=== PATIENT | female | born 1965 | race Caucasian/White ===

== ENCOUNTER 2020-02-20 12:06 | Emergency (ER) | payer MEDICARE, MEDICAID ==
[~2020-02-20] VITALS: Ht 175.3 cm; Wt 68.2 kg
[2020-02-20] MEDS ORDERED: ondansetron/PF 4mg/2ml inj IV ONE (12:20)
[2020-02-20] MEDS ORDERED: normal saline 1000ML IV soln IVB ONE (12:20)
[2020-02-20] MEDS: morphine 4 MG/ML inj SYRINge IV PRN ×2 (13:05→16:18)
[2020-02-20 15:22] LABS: BASOPHILS # (AUTO) 0.1 X10'3 (0-0.2); BASOPHILS % (AUTO) 1.4 % (0-1); EOSINOPHILS # (AUTO) 0.3 X10'3 (0-0.9); EOSINOPHILS % (AUTO) 4.3 % (0-6); HEMATOCRIT 40.1 % (35.0-45.0); HEMOGLOBIN 13.6 g/dl (12.0-16.0); LYMPHOCYTES % (AUTO) 42.3 % (21-51); MEAN CORPUSCULAR HEMOGLOBIN 31.6 PG (27.0-31.0); MEAN CORPUSCULAR HGB CONC 33.8 g/dL (33.0-36.5); MEAN CORPUSCULAR VOLUME 93.4 FL (78-98); MEAN PLATELET VOLUME 6.8 FL (7.4-10.4); MONOCYTES # (AUTO) 0.5 X10'3 (0-0.9); MONOCYTES % (AUTO) 7.7 % (2-12); NEUTROPHILS # (AUTO) 3.2 X10'3 (1.8-7.7); NEUTROPHILS % (AUTO) 44.3 % (42-75); PLATELET COUNT 292 X10'3 (140-440); RED BLOOD COUNT 4.29 X10'6 (4.20-5.60); RED CELL DISTRIBUTION WIDTH 13.2 % (11.5-14.5); WHITE BLOOD COUNT 7.1 X10'3 (4.5-11.0)
[2020-02-20 15:36] LABS: ALANINE AMINOTRANSFERASE 22 U/L (12-78); ALBUMIN 3.6 G/DL (3.4-5.0); ALBUMIN/GLOBULIN RATIO 1.1 (1.1-1.5); ALKALINE PHOSPHATASE 77 IU/L (46-116); ANION GAP 6 (8-16); ASPARTATE AMINO TRANSFERASE 11 U/L (10-37); BILIRUBIN,TOTAL 1.1 MG/DL (0.1-1.0); BLOOD UREA NITROGEN 13 MG/DL (7-18); BUN/CREATININE RATIO 18.3 (6.6-38.0); CALCIUM 8.5 MG/DL (8.5-10.1); CHLORIDE 109 MMOL/L (99-107); CREATININE 0.71 MG/DL (0.40-0.90); GLUCOSE 84 MG/DL (70-104); POTASSIUM 3.9 MMOL/L (3.5-5.1); SODIUM 142 MMOL/L (135-145); TOTAL CARBON DIOXIDE 27.2 MMOL/L (24-32); TOTAL PROTEIN 6.8 G/DL (6.4-8.2); eGFR 85 ML/MIN
[2020-02-20 19:08] VITALS: BP 126/65
== END 2020-02-20 19:10 | disposition short-term general hospital (02) ==
LOC: ER 12:07
DX: M51.26 Other intervertebral disc displacement, lumbar region (principal); G89.29 Other chronic pain; R33.9 Retention of urine, unspecified; Z87.440 Personal history of urinary (tract) infections; Z85.9 Personal history of malignant neoplasm, unspecified; Z98.890 Other specified postprocedural states; Z88.5 Allergy status to narcotic agent; Z88.6 Allergy status to analgesic agent; Z88.8 Allergy status to other drugs, medicaments and biological substances
CPT/HCPCS: 36415; 72148; 80053; 85025; 85610; 96361; 96374; 96375; 99285; J2270; J2405; J7030; 99284

== ENCOUNTER 2020-04-09 08:44 | Day surgery (SDC) | payer MEDICARE, MEDICAID ==
[2020-04-09 10:52] VITALS: BP 133/91
--- NOTE | 2020-04-09 10:59 | NUR ---
[facility] LINE INFORMATION: REF: [id number] LOT: [id number] EXP: 03-02-2021
== END 2020-04-09 11:15 | disposition home or self-care (01) ==
LOC: SSTAY O 08:44
PROVIDERS: ATTEND Nurse Practitioner Family
DX: Z45.2 Encounter for adjustment and management of vascular access device (principal); Z88.5 Allergy status to narcotic agent; Z88.8 Allergy status to other drugs, medicaments and biological substances
CPT/HCPCS: 36573; 76937

== ENCOUNTER 2020-06-10 08:51 | Day surgery (SDC) | payer MEDICARE, MEDICAID ==
[~2020-06-10] VITALS: Ht 175.3 cm; Wt 73.5 kg
[2020-06-10] MEDS ORDERED: normal saline 1000ml 1,000 ML IV PRN (09:20)
[2020-06-10 09:22] VITALS: BP 124/88
[2020-06-10 09:58] LABS: BASOPHILS # (AUTO) 0.1 X10'3 (0-0.2); BASOPHILS % (AUTO) 0.8 % (0-1); EOSINOPHILS # (AUTO) 0.1 X10'3 (0-0.9); EOSINOPHILS % (AUTO) 1.8 % (0-6); HEMOGLOBIN 14.1 g/dl (12.0-16.0); LYMPHOCYTES # (AUTO) 2.7 X10'3 (1.1-4.8); LYMPHOCYTES % (AUTO) 40.4 % (21-51); MEAN CORPUSCULAR HEMOGLOBIN 29.3 PG (27.0-31.0); MEAN CORPUSCULAR HGB CONC 33.6 g/dL (33.0-36.5); MEAN CORPUSCULAR VOLUME 87.2 FL (78-98); MEAN PLATELET VOLUME 6.5 FL (7.4-10.4); MONOCYTES # (AUTO) 0.7 X10'3 (0-0.9); NEUTROPHILS # (AUTO) 3.2 X10'3 (1.8-7.7); PLATELET COUNT 354 X10'3 (140-440); RED BLOOD COUNT 4.82 X10'6 (4.20-5.60); WHITE BLOOD COUNT 6.7 X10'3 (4.5-11.0)
[2020-06-10] MEDS ORDERED: DOCU-22 PO (09:59)
[2020-06-10] MEDS ORDERED: APIX5TAB3 PO (09:59)
[2020-06-10] MEDS ORDERED: ALBU18HF2 (09:59)
[2020-06-10] MEDS ORDERED: PANT40TA54 PO (09:59)
[2020-06-10] MEDS ORDERED: POTA20TA19 PO (09:59)
[2020-06-10] MEDS ORDERED: ONDA4TAB12 PO (09:59)
[2020-06-10] MEDS ORDERED: LIDO20SO24 (09:59)
[2020-06-10] MEDS ORDERED: LORazepam 0.5 MG tablet PO ONE (10:00)
[2020-06-10] MEDS ORDERED: folic acid PO (10:05)
[2020-06-10] MEDS ORDERED: vitamin D3 PO (10:05)
[2020-06-10] MEDS ORDERED: LEVO175T2 PO (10:05)
[2020-06-10] MEDS ORDERED: BUDE10.22 (10:05)
[2020-06-10] MEDS ORDERED: MULT-25 PO (10:05)
[2020-06-10] MEDS ORDERED: midazolam 2 mg/2 ml injection ONE ×2 (10:37→11:08)
[2020-06-10] MEDS ORDERED: fentaNYL/PF 50MCG/1 ML 2ML syringe ONE ×2 (10:37→11:08)
[2020-06-10] MEDS ORDERED: LIDOcaine 1%/PF 5ML 10 MG/ML VIAL ONE (10:39)
[2020-06-10] MEDS ORDERED: heparin 1,000 UNITS/NS 500ml 500 ML ONE (10:40)
[2020-06-10] MEDS ORDERED: iohexol 300 MG/1 ML 50ml polymer ONE ×2 (10:40→11:17)
[2020-06-10 11:48] VITALS: BP 126/78
[2020-06-10 12:00] VITALS: BP 118/76
[2020-06-10 12:15] VITALS: BP 130/67
[2020-06-10 12:30] VITALS: BP 121/72
== END 2020-06-10 13:00 | disposition home or self-care (01) ==
LOC: SSTAY O 08:51
PROVIDERS: ATTEND Radiology Diagnostic Radiology
DX: Z45.89 Encounter for adjustment and management of other implanted devices (principal); Z79.01 Long term (current) use of anticoagulants
CPT/HCPCS: 36415; 37193; 76937; 85025; 85610; 87426; C1769; C1894; J1644; J2250; J3010; Q9967; 99152; 99153

== ENCOUNTER 2023-01-25 07:19 | Day surgery (SDC) | payer OTHER, MEDICARE ==
[~2023-01-25] VITALS: Ht 172.7 cm; Wt 76.1 kg
[2023-01-25] VITALS (13 sets, daily range): BP systolic 103–135; BP diastolic 67–91; PULSE 60–82; RESP 14–16; TEMP 97.8; O2SAT 93–98
[~2023-01-25 07:19] MED LIST: ALBU18HF2; APIX5TAB3 PO; BUDE10.22; DOCU-22 PO; LEVO175T2 PO; LIDO15SO3; MULT-25 PO; ONDA4TAB12 PO; PANT40TA54 PO; POTA-207 PO; folic acid PO; vitamin D3 PO
[2023-01-25] MEDS ORDERED: LIDOcaine 1%/PF 5ML 10 MG/ML VIAL SQ ONE (07:25)
[2023-01-25] MEDS ORDERED: normal saline 1000ml 1,000 ML IV SCH ×2 (07:50→09:50)
[2023-01-25] MEDS ORDERED: TURM500T PO (08:02)
[2023-01-25] MEDS ORDERED: CRAN125T PO (08:02)
[2023-01-25] MEDS ORDERED: [UNRECOGNIZED DRUG - CODE] PO (08:02)
[2023-01-25] MEDS ORDERED: CANNABIS TINCTURE (08:02)
[2023-01-25] MEDS ORDERED: ASPI-1264 PO (08:02)
[2023-01-25 09:18] LABS: BASOPHILS # (AUTO) 0.1 X10'3 (0-0.2); BASOPHILS % (AUTO) 0.9 % (0-1); EOSINOPHILS # (AUTO) 0.4 X10'3 (0-0.9); EOSINOPHILS % (AUTO) 4.2 % (0-6); HEMATOCRIT 41.1 % (35.0-45.0); HEMOGLOBIN 13.9 g/dl (12.0-16.0); LYMPHOCYTES # (AUTO) 3.1 X10'3 (1.1-4.8); LYMPHOCYTES % (AUTO) 36.8 % (21-51); MEAN CORPUSCULAR HEMOGLOBIN 30.4 PG (27.0-31.0); MEAN CORPUSCULAR HGB CONC 33.7 g/dL (33.0-36.5); MEAN CORPUSCULAR VOLUME 90.1 FL (78-98); MEAN PLATELET VOLUME 6.9 FL (7.4-10.4); MONOCYTES # (AUTO) 0.6 X10'3 (0-0.9); MONOCYTES % (AUTO) 7.4 % (2-12); NEUTROPHILS # (AUTO) 4.3 X10'3 (1.8-7.7); NEUTROPHILS % (AUTO) 50.7 % (42-75); PLATELET COUNT 315 X10'3 (140-440); RED BLOOD COUNT 4.56 X10'6 (4.20-5.60); RED CELL DISTRIBUTION WIDTH 12.7 % (11.5-14.5); WHITE BLOOD COUNT 8.5 X10'3 (4.5-11.0)
[2023-01-25 09:42] LABS: PROTHROMBIN TIME 9.9 SECONDS (9.0-12.0)
[2023-01-25 10:03] LABS: INR 0.9 INR
== END 2023-01-25 13:23 | disposition home or self-care (01) ==
LOC: SSTAY O 07:19
PROVIDERS: ATTEND Radiology Diagnostic Radiology
DX: R74.8 Abnormal levels of other serum enzymes (principal); E80.6 Other disorders of bilirubin metabolism; I73.00 Raynaud's syndrome without gangrene; E87.6 Hypokalemia; M32.9 Systemic lupus erythematosus, unspecified; Z85.850 Personal history of malignant neoplasm of thyroid; Z98.890 Other specified postprocedural states; Z88.8 Allergy status to other drugs, medicaments and biological substances; Z88.5 Allergy status to narcotic agent; Z79.82 Long term (current) use of aspirin; Z79.899 Other long term (current) drug therapy
CPT/HCPCS: 36415; 47000; 76942; 85025; 85610; J3490; 37200; 75970; C1758